=== PATIENT | male | born 1960 | race Caucasian/White ===

== ENCOUNTER → 2016-10-16 | Outpatient (CLI) | payer BC ==
[~2016-10-16] VITALS: Ht 180.3 cm; Wt 98.0 kg
[~2016-10-16] MED LIST: ASPIRIN 32325 MG/TAB PO; ASPIRIN E.C.325 MG PO; COZAAR 50MG50 MG/TAB PO; LIPITOR 40MG TA40 MG PO; LOPRESSOR; MICARDIS40 MG PO; TOPROL; TOPROL XL 50MG50 MG PO; ZOCOR
[2016-10-16 05:55] VITALS: BP 136/88; PULSE 77
== END ==
LOC: COL.CARD 05:41
DX: I25.10 Atherosclerotic heart disease of native coronary artery without angina pectoris (principal)
CPT/HCPCS: A9502